=== PATIENT | male | born 1985 | race Caucasian/White ===

== ENCOUNTER 2017-04-21 11:06 | Emergency (ER) | payer BC ==
[~2017-04-21] VITALS: Ht 177.8 cm; Wt 156.5 kg
[2017-04-21 11:18] VITALS: Ht 177.8 cm; Wt 156.5 kg
[2017-04-21] MEDS ORDERED: KETOROLAC 30 MG INJ IM STA (12:31)
[2017-04-21] MEDS ORDERED: predniSONE 20 MG TAB PO ONE (13:00)
--- NOTE | 2017-04-21 13:05 | ERD ---
ER Documentation Chief Complaint Chief Complaint LEFT LEG PAIN RADIATING DOWN LEG X4 DAYS HPI This is a 31-year-old male who presents to the emergency department today complaining of left-sided back pain that goes into his buttocks and down into the back of his leg and into the front of his left knee. States that he takes "water pills for lower extremity swelling". Denies any history of diabetes. Denies any fevers or chills, loss of bowel or bladder control. Denies any calf pain. She does sit a lot at work. ROS All systems reviewed and are negative except as per history of present illness. Medications Home Meds Active Scripts Prednisone* (Prednisone*) 20 Mg Tab, 40 MG PO DAILY for 4 Days, TAB Prov:LETICIA CASEY PA-C 04/21/17 Naproxen* (Naprosyn*) 500 Mg Tablet, 500 MG PO BID Y for PAIN AND/OR INFLAMMATION, #30 TAB Prov:LETICIA CASEY PA-C 04/21/17 Tramadol HCl (Tramadol HCl) 50 Mg Tablet, 50 MG PO Q4 Y for PAIN, #20 TAB Prov:LETICIA CASEY PA-C 04/21/17 Allergies Allergies: Coded Allergies: No Known Allergy (Unverified , 04/21/17) PMhx/Soc Medical and Surgical Hx: pt denies Medical Hx, pt denies Surgical Hx Physical Exam Vitals Vital Signs Date Time Temp Pulse Resp B/P Pulse Ox O2 Delivery O2 Flow Rate FiO2 04/21/17 13:14 98.0 73 17 141/91 98 Room Air 04/21/17 11:18 98.0 80 18 165/85 96 Physical Exam Const: obese, NAD Head: Atraumatic Eyes: Normal Conjunctiva ENT: Normal External Ears, Nose and Mouth. Neck: Full range of motion..~ No meningismus. Resp: Clear to auscultation bilaterally Cardio: Regular rate and rhythm, no murmurs Abd: Soft, non tender, non distended. Normal bowel sounds Skin: No petechiae or rashes Back: Lumbar spine with midline tenderness and left-sided paraspinal tenderness. Pulses 2+. Distal neurovascularly intact. Ext: No cyanosis, or edema. No calf tenderness Neur: Awake and alert Psych: Normal Mood and Affect Results 24 hrs Current Medications Medications (Trade) Dose Ordered Sig/Castro Route PRN Reason Start Time Stop Time Status Last Admin Dose Admin Ketorolac Tromethamine (Toradol) 30 mg ONCE STAT IM 04/21/17 12:31 04/21/17 12:32 DC 04/21/17 13:14 Prednisone (Prednisone) 60 mg ONCE ONCE PO 04/21/17 13:00 04/21/17 13:01 DC 04/21/17 13:14 DIAGNOSTIC IMAGING REPORT Patient: MAKAYLA GRAY : 1985 Age: 31 Sex: M MR #: [id number] DOS: 04/21/17 0000 Ordering MD: LETICIA CASEY PA-C Location: [facility] Room/Bed: PROCEDURE: XR Lumbar Spine. CLINICAL INDICATION: Low back pain. Left sided radicular pain. TECHNIQUE: Three views of the lumbar spine are available for review COMPARISON: None available FINDINGS: There is straightening of normal lumbar lordosis. Alignment is intact. No acute fracture or dislocation is seen. The vertebral body heights are preserved. There are multilevel mild degenerative changes of lumbar spine, most pronounced at L5-S1. Multilevel facet arthropathy is noted more pronounced at L4-5 and L5-S1 with associated foraminal narrowing. IMPRESSION: 1. No acute fracture or dislocation. 2. 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 3. Multilevel facet arthropathy is noted more pronounced at L4-5 and L5-S1 with associated foraminal narrowing. 4. Straightening of the normal lumbar lordosis. RPTAT: HFN .Micah Rogers MD, MD Date Time Electronically viewed and signed by .Micah Rogers MD, MD on 04/21/2017 13: 20 .N/ CC: LETICIA CASEY PA-C Procedures/MDM This is a Is a 29-year-old male presents to the emergency department today complaining of left-sided back pain that goes down into his left buttock down the back of his left leg. Given patient did have some midline tenderness on physical exam and he does have radicular symptoms I did obtain images. Per the radiology report images of the lumbar spine showed no acute fracture dislocation. There is multilevel mild discogenic disease of the lumbar spine most pronounced at L5 and S1. There is multilevel facet arthropathy noted more pronounced L4 and 5 and 5 and S1 with associated foraminal narrowing. Symptoms at this time is consistent with back pain likely caused by degenerative disc disease. Patient is afebrile and otherwise well-appearing. He has no loss of bowel or bladder control. Low suspicion for cauda equina or abscess. He does have bilateral lower extremity swelling however he does not complain of any calf pain and currently takes medication for lower extremity swelling. Patient states that this feels different. He does indicate that he does sit a lot for work. Patient was given Toradol and prednisone here in the emergency department. He will given a prescription for short course of tramadol, Naprosyn and prednisone for home. Instructed not to do prolonged sitting at work. At this time the patient is stable for discharge and outpatient management. Patient should follow up with their PCP in the next 1-2 days for referral to strategic debriefing specialist. They may return to the emergency department sooner for any persistent or worsening of symptoms. Patient understood and agreed with the plan. Departure Diagnosis: Primary Impression: Back pain Back pain location: low back pain Chronicity: unspecified Back pain laterality: midline Sciatica presence: with sciatica Sciatica laterality: sciatica of left side Qualified Code: M54.42 - Midline low back pain with left -sided sciatica, unspecified chronicity Condition: LETICIA Sexton PA-C Apr 21, 2017 13:05
[2017-04-21 13:14] VITALS: BP 141/91; PULSE 73; RESP 17; TEMP 98
--- NOTE | 2017-04-21 13:21 | RADRPT ---
PROCEDURE: XR Lumbar Spine. CLINICAL INDICATION: Low back pain. Left sided radicular pain. TECHNIQUE: Three views of the lumbar spine are available for review COMPARISON: None available FINDINGS: There is straightening of normal lumbar lordosis. Alignment is intact. No acute fracture or disloc ation is seen. The vertebral body heights are preserved. There are multilevel mild degenerative changes of lumbar s pine, most pronounced at L5-S1. Multilevel facet arthropathy is noted more pronounced at L4-5 and L5 -S1 with associated foraminal narrowing. IMPRESSION: 1. No acute fracture or dislocation. 2. Multilevel mild discogenic disease of lumbar spine, most pronounced at L5-S1. 3. Multilevel facet arthropathy is noted more pronounced at L4-5 and L5-S1 with associated foramina l narrowing. 4. Straightening of the normal lumbar lordosis. RPTAT: HFN .Micah Rogers MD, Date Time Electronically viewed and signed by .Micah Rogers MD, on 04/21/2017 13:20 .N/
[2017-04-21] MEDS ORDERED: TRAM50TA2 PO (13:47)
[2017-04-21] MEDS ORDERED: NAPR-260 PO (13:47)
[2017-04-21] MEDS ORDERED: PRED20TA PO (13:48)
== END 2017-04-21 14:21 | disposition home or self-care (01) ==
LOC: FTE 11:06
DX: M54.42 Lumbago with sciatica, left side (principal)
CPT/HCPCS: 72100; 96372; 99284; J1885; J7512